=== PATIENT | male | born 2000 ===

== ENCOUNTER 2024-02-16 08:47 | Outpatient (REF) | payer MEDICAID, OTHER, SELFPAY ==
[2024-02-16 11:24] LABS: Anion Gap 12 (12-20); Blood Urea Nitrogen 13 mg/dL (9-16); Calcium 9.6 mg/dL (8.4-10.2); Carbon Dioxide 29 mmol/L (22-29); Chloride 104 mmol/L (96-108); Cholesterol 169 mg/dL (<200); Estimated Glomerular Filt Rate > 60; Glucose Random 92 mg/dL (60-115); HDL Cholesterol 40 mg/dL (>40); LDL Cholesterol Calculated 108 mg/dL (<100); Potassium 3.9 mmol/L (3.3-5.1); Sodium 141 mmol/L (135-145); Triglycerides 108 mg/dL (<150)
== END 2024-02-16 08:48 | disposition home or self-care (01) ==
LOC: HO.HHCL 08:47
PROVIDERS: Visit Provider Family Medicine
DX: I10 Essential (primary) hypertension (principal)
CPT/HCPCS: 36415; 80048; 80061

== ENCOUNTER 2024-08-08 09:31 | Outpatient (REF) | payer MEDICAID, SELFPAY ==
[2024-08-08 11:14] LABS: MANUAL DIFF FLAG NO
[2024-08-08 11:31] LABS: Basophils Absolute Auto 0.1 X10*3/uL (0.0-0.2); Basophils Percent Auto 0.6 % (0-2); Eosinophils Absolute Auto 0.1 X10*3/uL (0.0-0.4); Eosinophils Percent Auto 0.8 % (0-4); Hematocrit 44.2 % (42.0-52.0); Hemoglobin 15.3 g/dl (14.0-18.0); Imm Gran Abs Auto 0.03 X10*3/uL (0.00-0.03); Imm Gran Pct Auto 0.3 % (0.0-0.4); Lymphocytes Absolute Auto 2.4 X10*3/uL (1.2-4.9); Lymphocytes Percent Auto 24.6 % (20-40); Mean Corpuscular HGB Conc 34.6 g/dl (31.0-36.0); Mean Corpuscular Volume 92.5 fL (80.0-98.0); Mean Platelet Volume 10.6 fL (9.4-12.4); Monocytes Absolute Auto 0.9 X10*3/uL (0.1-1.2); Monocytes Percent Auto 9.6 % (2-11); Neutrophils Absolute Auto 6.1 x10*3/uL (2.0-8.3); Neutrophils Percent Auto 64.1 % (45-73); Platelet Count 251 X10*3/uL (160-400); Red Blood Count 4.78 X10*6/uL (4.60-5.80); White Blood Count 9.6 X10*3/uL (4.8-10.8)
[2024-08-08 11:48] LABS: Alanine Aminotransferase 22 U/L (0-40); Albumin Level 4.4 g/dL (3.5-5.0); Alkaline Phosphatase 110 U/L (39-117); Anion Gap 12 (12-20); Aspartate Amino Transferase 26 U/L (5-37); Bilirubin Total 0.6 mg/dL (0.0-1.0); Blood Urea Nitrogen 12 mg/dL (9-16); Calcium 9.2 mg/dL (8.4-10.2); Carbon Dioxide 24 mmol/L (22-29); Chloride 109 mmol/L (96-108); Estimated Glomerular Filt Rate > 60; Glucose Random 94 mg/dL (60-115); Sodium 141 mmol/L (135-145); Total Protein 7.5 g/dL (6.5-8.0)
[2024-08-08 12:05] LABS: HBsAGNum1 0.35 S/CO (0.00-0.99); HIV AB/AG Nonreactive (Nonreactive); HIV Num 1 0.17 S/CO (0.00-0.99); Hepatitis B Surface Antigen Negative (Negative); ~HepC Num1 0.28 S/CO (0.00-0.79); ~Hepatitis B Surface Antibody REACTIVE (Nonreactive); ~Hepatitis C Antibody Nonreactive (Nonreactive)
[2024-08-08 14:19] LABS: CT PCR NOT DETECTED (Not Detect.); NG PCR NOT DETECTED (Not Detect.)
[2024-08-09 08:54] LABS: Hepatitis A Antibody IgG Nonreactive (Nonreactive); ~Hepatitis A Antibody IgG 0.25 S/CO (0.00-0.99)
[2024-08-09 10:13] LABS: RPR Rapid Plasma Reagin NON-REACTIVE (NON-REACTIVE)
== END 2024-08-08 09:32 | disposition home or self-care (01) ==
LOC: HO.HHCL 09:31
PROVIDERS: Visit Provider Internal Medicine Geriatric Medicine
DX: I10 Essential (primary) hypertension (principal); Z11.3 Encounter for screening for infections with a predominantly sexual mode of transmission
CPT/HCPCS: 80053; 85025; 86592; 86706; 86708; 86803; 87340; 87389; 87491; 87591

== ENCOUNTER 2024-09-01 12:13 | Outpatient (REF) | payer MEDICAID, SELFPAY ==
[2024-09-01 13:45] LABS: Anion Gap 11 (12-20); Blood Urea Nitrogen 11 mg/dL (9-16); Calcium 9.2 mg/dL (8.4-10.2); Carbon Dioxide 27 mmol/L (22-29); Chloride 106 mmol/L (96-108); Estimated Glomerular Filt Rate > 60; Glucose Random 97 mg/dL (60-115); Potassium 3.6 mmol/L (3.3-5.1); Sodium 140 mmol/L (135-145)
== END 2024-09-01 12:14 | disposition home or self-care (01) ==
LOC: HO.HHCL 12:13
PROVIDERS: Visit Provider Internal Medicine Geriatric Medicine
DX: I10 Essential (primary) hypertension (principal)
CPT/HCPCS: 36415; 80048

== ENCOUNTER 2024-09-07 10:34 | Outpatient (REF) | payer MEDICAID, SELFPAY ==
[2024-09-07 12:13] LABS: Anion Gap 12 (12-20); Blood Urea Nitrogen 12 mg/dL (9-16); Calcium 9.2 mg/dL (8.4-10.2); Carbon Dioxide 27 mmol/L (22-29); Chloride 104 mmol/L (96-108); Estimated Glomerular Filt Rate > 60; Glucose Random 96 mg/dL (60-115); Potassium 3.9 mmol/L (3.3-5.1); Sodium 139 mmol/L (135-145)
--- OUTSIDE RECORDS SUMMARY | 2024-09-07 12:42 | XMS_ITS | Clinical Summary ---
Author Organization [employer] Address [address] [facility] [place] [address] Care Team Providers Care Jitney Driver Name Role Phone Name, Noel NICHOLAS Primary Care Provider [phone] Allergies No known active allergies Medications * This document contains information received from the source organization and may not represent a complete record from that organization. amLODIPine (Norvasc) 5 MG tablet Take 1 tablet (5 mg) by mouth Once per day. 30 tablet 11 5 08/08/19 26 Active Blood Pressure kitIndications:Be nign essential hypertension,Rout ine screening for STI (sexually transmitted infection) Use once a day 1 kit 5 Active hydroCHLOROthiazi de (HYDRODiuril) 25 MG tabletIndications :Benign essential hypertension Take 1 tablet (25 mg) by mouth Once per day. 30 tablet 11 5 09/02/19 26 Active hydroCHLOROthiazi de 12.5 MG tabletIndications :Benign essential hypertension Take 1 tablet (12.5 mg) by mouth Once per day. 30 tablet 11 5 09/02/19 25 Discontinu ed(Dose adjustment ) Active Problems Problem Noted Date Diagnosed Date Anxiety 08/21/2024 Benign essential hypertension 08/07/2024 Encounters * This document contains information received from the source organization and may not represent a complete record from that organization. Date Type Department Care Team Description 09/01/2024 11:00 AM EDT Telemedicine [facility] [address] [place] [address] Alisha Cope, MARVIN Benign essential hypertension 09/01/2024 Telephone [facility] [address] [place] [address] Name, MD Noel Error (VOID this visit) 09/01/2024 Travel 08/24/2024 11:15 AM EDT Telemedicine [facility] [place] [address] Noel Ledezma MD Benign essential hypertension (Primary Dx) 08/24/2024 Travel 08/21/2024 Telephone [facility] [place] [address] Noel Ledezma MD 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 ) 08/15/2024 Telephone [facility] [address] [place] [address] Leanna Salmeron RN 08/14/2024 1:30 PM EDT Telemedicine [facility] [place] [address] Leanna Salmeron RN Benign essential hypertension [I10] 08/14/2024 Travel 08/07/2024 2:00 PM EDT Office Visit [facility] [place] [address] Noel Ledezma MD Benign essential hypertension (Primary Dx); Routine screening for STI (sexually transmitted infection) 08/07/2024 Travel 08/04/2024 Population Health Risk Score [facility] () Department [address] [place] [phone] Provider, Population Health Generic 07/31/2024 Patient Outreach [facility] [address] [place] [address] Noel Ledezma MD Pre-visit Planning (SDOH negative, Tobacco screening negative. ) from Last 3 Months Immunizations Name Administration Dates Next Due Tdap 08/07/2024 Family History Medical History Relation Name Comments Hypertension Father Hypertension Mother Relation Name Status Comments Father Mother Social History Tobacco Use Types Packs/Day Years Used Date Smoking Tobacco: Never Smokeless Tobacco: Never Tobacco Cessation:Counseling Given: Not Answered Alcohol Use Standard Drinks/Week Comments Yes 0 (1 standard drink = 0.6 oz pur e alcohol) socially Depression Answer Date Recorded Patient Health Questionnaire-9 Score 4 08/07/2024 Patient Health Questionnaire-9 Score 4 08/07/2024 Last PHQ-9: Questionnaire Data Not on file 0 08/07/2024 Housing Stability Answer Date Recorded What is your housing situation today? I have vicki sing 07/31/[address] you li ve. Do you have problems with any of the following? None of the above 07/31/2024 Food Insecurity Answer Date Recorded Within the past 12 months, y ou worried that your food would run out before you got money to buy more: Never True 07/31/2024 Within the past 12 months,th e food you bought just didn't last and you didn't have enough money to get more: Never True 02/2025 Transportation Answer Date Recorded In the past 12 months, has l ack of transportation kept you from medical appts, meetings, work or from getting things needed for daily living? No 07/31/2024 Utilities Answer Date Recorded In the past 12 months, has t he electric, gas, oil or water company threatened to shut off services in your home? No 07/31/2024 Depression Answer Date Recorded Patient Health Questionnaire-2 Score 1 08/07/2024 Internet Access Answer Date Recorded Internet Access Q1 Yes 07/31/2024 Internet Access Q2 Not on file 07/31/2024 Sex and Gender Information Value Date Recorded Sex Assigned at Male 02/21/2024 1:25 PM EDT Legal Sex Male 4:14 PM EDT Gender Identity Male 02/21/2024 1:25 PM EDT Sexual Orientation Straight 02/21/2024 1: 25 PM EDT Last Filed Vital Signs Vital Sign Reading Time Taken Comments Blood Pressure 144/92 08/07/2024 2:10 PM EDT Pulse 89 08/07/2024 2:10 PM EDT Temperature 36.4 ??C (97.5 ??F) 08/07/2024 2:10 PM ED T Respiratory Rate 21 08/07/2024 2:10 PM EDT Oxygen Saturation 98% 08/07/2024 2:10 PM EDT Inhaled Oxygen Concentration - - Weight 88.6 kg (195 lb 6.4 oz) 08/07/2024 2:10 P M EDT Height 180.3 cm (5' 11 ) 08/07/2024 2:10 PM EDT Body Mass Index 27.25 08/07/2024 2:10 PM EDT Plan of Treatment Upcoming Encounters Date Type Department Care Team (Late st Contact Info) Description 09/08/2024 11:30 AM EDT Telemedicine [facility] [address] [place] [phone] 11/17/2024 11:30 AM EDT Office Visit [facility] [address] [place] [phone] Name, [place] [address] Health Maintenance Due Date Last Done Comments Alcohol/Substance Use Screening 2010 Family Planning (PISQ) 2013 HPV Vaccines (1 - Male 3-dos e series) 2013 Hepatitis A Vaccines (1 of 2 - Risk 2-dose series) 2017 Hepatitis B Vaccines (1 of 3 - 19+ 3-dose series) 2017 COVID-19 Vaccine (1 - 2023-2 5 season) 2024 Influenza Vaccine (#1) 2024 Depression Screening 08/07/2025 08/07/2024, 08/07/2024 SDOH Screening 08/07/2025 08/07/2024 Tobacco Screening 08/07/2025 08/07/2024 Lipid Panel 02/15/2029 02/16/2024 DTaP/Tdap/Td Vaccines (2 - T d or Tdap) 08/07/2034 08/07/2024 Zoster Vaccines (1 of 2) 2048 RSV Patients and Patients Aged 60 years or older (1 - 1-dose 75+ series) 2073 HIV Screening Completed 08/08/2024 Hepatitis C Screening Completed 08/08/2024 HIB Vaccines Aged Out No longer eligi ble based on patient's age to complete this topic IPV Vaccines Aged Out No longer eligi ble based on patient's age to complete this topic Meningococcal Vaccine Aged Out No kathryn sara eligible based on patient's age to complete this topic Pneumococcal Vaccine: Pediatrics (0 to 5 Years) and At-Risk Patients (6 to 49) Years) Aged Out No longer eligible b ased on patient's age to complete this topic RSV under 20 months Aged Out No longe r eligible based on patient's age to complete this topic Rotavirus Vaccines Aged Out No longer eligible based on patient's age to complete this topic Procedures Procedure Name Priority Date/Time Associated Diagnosis Comments BASIC METABOLIC PANEL Routine 09/07/2024 10:37 AM EDT Benign essential hypertension BASIC METABOLIC PANEL Routine 09/01/2024 12:15 PM EDT Benign essential hypertension HEPATITIS A ANTIBODY, TOTAL Routine 08/08/2024 9:33 AM EDT Benign essential hypertension Routine screening for STI (sexually transmitted infection) HEPATITIS B SURFACE ANTIBODY, QUALITATIVE Routine 08/08/2024 9:33 AM EDT Benign essential hypertension Routine screening for STI (sexually transmitted infection) HEPATITIS B SURFACE ANTIGEN, EIA Routine 08/08/2024 9:33 AM EDT Benign essential hypertension Routine screening for STI (sexually transmitted infection) HEPATITIS C AB W/REFL TO HCV RNA, QN, PCR Routine 08/08/2024 9:33 AM EDT Benign essential hypertension Routine screening for STI (sexually transmitted infection) RPR (MONITOR) W/REFL TITER Routine 08/08/2024 9:33 AM EDT Benign essential hypertension Routine screening for STI (sexually transmitted infection) HIV 1/2 ANTIGEN/ANTIBODY, FOURTH GENERATION W/RFL Routine 08/08/2024 9:33 AM EDT Benign essential hypertension Routine screening for STI (sexually transmitted infection) COMPREHENSIVE METABOLIC PANEL Routine 08/08/2024 9:33 AM EDT Benign essential hypertension Routine screening for STI (sexually transmitted infection) CBC WITH AUTO DIFFERENTIAL Routine 08/08/2024 9:33 AM EDT Benign essential hypertension Routine screening for STI (sexually transmitted infection) CHLAMYDIA/N. GONORRHOEAE RNA, TMA, UROGENITAL Routine 08/08/2024 9:33 AM EDT Benign essential hypertension Routine screening for STI (sexually transmitted infection) LIPID PANEL, STANDARD Routine 02/16/2024 8:52 AM EDT Benign essential hypertension from Last 3 Months or Most Recently Relevant to Health Maintenance Results * Basic Metabolic Panel (09/07/2024 10:37 AM EDT) Only the most recent of2 resultswithin the time period is included. Pathologist [facility] Sodium 139 135 - 145 mmol/L [facility] Potassium 3.9 3.3 - 5.1 mmol/L [facility] Chloride 104 96 - 108 mmol/L [facility] Carbon Dioxide 27 22 - 29 mmol/L [facility] Anion Gap 12 12 - 20 [facility] Urea Nitrogen (BUN) 12 9 - 16 mg/dL [facility] Creatinine, Serum 1.02 0.5 - 1.4 mg/dL [facility] Estimated Glomerular Filt Rate >60 [facility] Comment:Chronic Kidney Disea se: Estimated GFR < 60 mL/min/[id number] Kidney Disease: Estimated GFR < 15 mL/min/1.73m2 Glucose 96 60 - 115 mg/dL [facility] Calcium 9.2 8.4 - 10.2 mg/dL [facility] Blood Venous blood specimen / Unknown 09/07/2024 10:37 AM EDT 09/07/2024 11:17 AM EDT us Noel Ledezma MD LAB BLOOD ORDERABLES Final Resul t [facility] [address] [place] [address] [phone] * CBC auto differential (08/08/2024 9:33 AM EDT) White Blood Count 9.6 4.8 - 10.8 X10*3/uL [facility] Red Blood Count 4.78 4.60 - 5.80 X10*6/uL [facility] Hemoglobin 15.3 14.0 - 18.0 g/dl [facility] Hematocrit 44.2 42.0 - 52.0 % [facility] Mean Corpuscular Volume 92.5 80.0 - 98.0 fL [facility] Mean Corpuscular Hemoglobin 32.0 27.0 - 33.0 pg [facility] Mean Corpuscular HGB Conc 34.6 31.0 - 36.0 g/dl [facility] Red Cell Distribution Width 12.0 11.0 - 16.0 % [facility] Platelet Count 251 160 - 400 X10*3/uL [facility] Mean Platelet Volume 10.6 9.4 - 12.4 fL [facility] Neutrophils Percent Auto 64.1 45 - 73 % [facility] Imm Gran Pct Auto 0.3 0.0 - 0.4 % [facility] Lymphocytes Percent Auto 24.6 20 - 40 % [facility] Monocytes Percent Auto 9.6 2 - 11 % [facility] Eosinophils Percent Auto 0.8 0 - 4 % [facility] Basophils Percent Auto 0.6 0 - 2 % [facility] NRBC Pct Auto 0.0 0.0 - 0.2 /100WBC [facility] Neutrophils Absolute Auto 6.1 2.0 - 8.3 x10*3/uL [facility] Imm Gran Abs Auto 0.03 0.00 - 0.03 X10*3/uL [facility] Lymphocytes Absolute Auto 2.4 1.2 - 4.9 X10*3/uL [facility] Monocytes Absolute Auto 0.9 0.1 - 1.2 X10*3/uL [facility] Eosinophils Absolute Auto 0.1 0.0 - 0.4 X10*3/uL [facility] Basophils Absolute Auto 0.1 0.0 - 0.2 X10*3/uL [facility] NRBC Abs Auto 0.000 0.0 - 0.012 X10*3/uL [facility] Blood Venous blood specimen / Unknown 08/08/2024 9:33 AM EDT 08/08/2024 11:09 AM EDT us Noel Name LAB BLOOD ORDERABLES Final Resul t [facility] [address] [place] [phone] * Hepatitis C Antibody with Reflex to HCV, RNA, Quantitative, Real-Time PCR (08/08/2024 9:33 AM EDT) Pathologist [facility] Hepatitis C Antibody Nonreactive Nonreactive [facility] Comment:Antibodies to HCV no t detected; does not exclude early acuteHCV infection. Blood Venous blood specimen / Unknown 08/08/2024 9:33 AM EDT 08/08/2024 11:09 AM EDT us Noel Ledezma MD LAB BLOOD ORDERABLES Final Resul t Performing Organization Address [facility]/ZIP Co de Phone Number [facility] [address] [place] [phone] * Hepatitis A Antibody, Total (08/08/2024 9:33 AM EDT) [facility] Hepatitis A Antibody IgG Nonreactive Nonreactive [facility] Blood Venous blood specimen / Unknown 08/08/2024 9:33 AM EDT 08/08/2024 11:09 AM EDT us Noel Ledezma MD LAB BLOOD ORDERABLES Final Resul t Performing Organization Address [facility] Co de Phone Number [facility] [address] [place] [phone] * Chlamydia/N. Gonorrhoeae RNA, TMA, Urogenitial (08/08/2024 9:33 AM EDT) [facility] CT PCR NOT DETECTED Not Detect. [facility] Comment:A not detected test result does not exclude the possibilityof infection because test results can be affected byimproper specimen collection, concurrent antibiotic therapy,or the number of organisms in the specimen which may bebelow the sensitivity of the test. As with many diagnostictests, results from the Xpert CT/NG assay should beinterpreted in conjunction with other laboratory andclinical data available to the clinician.Xpert CT/NG performance has not been evaluated in patientsless than 14 years of age. The assay should not be used forthe evaluationof suspected sexual abuse or for other medico-legalindications. Additional testing is recommended in anycircumstance when false positive or false negative resultscould lead to adverse medical, social or psychologicalconsequences. NG PCR NOT DETECTED Not Detect. [facility] Comment:A not detected test result does not exclude the possibilityof infection because test results can be affected byimproper specimen collection, concurrent antibiotic therapy,or the number of organisms in the specimen which may bebelow the sensitivity of the test. As with many diagnostictests, results from the Xpert CT/NG assay should beinterpreted in conjunction with other laboratory andclinical data available to the clinician.Xpert CT/NG performance has not been evaluated in patientsless than 14 years of age. The assay should not be used forthe evaluationof suspected sexual abuse or for other medico-legalindications. Additional testing is recommended in anycircumstance when false positive or false negative resultscould lead to adverse medical, social or psychologicalconsequences. Urine (Urine, Random) 08/08/2024 9:33 AM EDT 08/08/2024 11:14 AM EDT Narrative [facility] - 08/08/2024 2:19 PM EDT Urine us Noel Ledezma MD LAB MICROBIOLOGY - GENERAL ORDER GIFTY Final Result Performing Organization Address [facility]/ZIP Co de Phone Number [facility] [address] [place] [phone] * Hepatitis B surface antigen, EIA (08/08/2024 9:33 AM EDT) Hepatitis B Surface Ag Negative Negative [facility] Blood Venous blood specimen / Unknown 08/08/2024 9:33 AM EDT 08/08/2024 11:09 AM EDT us Noel Ledezma MD LAB BLOOD ORDERABLES Final Resul t Performing Organization Address [facility]/ZIP Co de Phone Number [facility] [address] [place] [phone] * RPR (Monitor) with Reflex to??Titer (08/08/2024 9:33 AM EDT) RPR (Monitor) w/Refl Titer NON-REACTI VE NON-REACT RAJAT [facility] Comment:THIS TEST WAS PERFOR MED AT:[employer] [place] [id number] SENA MD Rapid Plasma Reagin Ab Titer TNP [facility] Blood Venous blood specimen / Unknown 08/08/2024 9:33 AM EDT 08/08/2024 11:09 AM EDT us Noel Ledezma MD LAB BLOOD ORDERABLES Final Resul t [facility] [address] [place] [phone] * HIV-1/2 Antigen and Antibodies, Fourth Generation, with Reflexes (08/08/2024 9:33 AM EDT) HIV AB/AG Nonreactive Nonreactive [facility] Comment:HIV-1 p24 Ag and/or HIV-1/HIV-2 Ab not detected.A test result that is nonreactive does not exclude thepossibility of exposure to or infection with HIV-1 and/orHIV-2. Nonreactive results in this assay for individualswith prior exposure to HIV-1 and/or HIV-2 may be due toantigen and antibody levels that are below the limit ofdetection of this assay.The [employer] HIV Ag/Ab Combo assay result andsupplemental assay results should be interpreted inconjunction with the patient's clinical presentation,history and other laboratory results. If the results areinconsistent with clinical evidence, additional testing issuggested to confirm the result. Blood Venous blood specimen / Unknown 08/08/2024 9:33 AM EDT 08/08/2024 11:09 AM EDT us Noel Ledezma MD LAB BLOOD ORDERABLES Final Resul t Performing Organization Address [facility]/ZIP Co de Phone Number [facility] [address] [place] [phone] * Hepatitis B Surface Antibody, Qualitative (08/08/2024 9:33 AM EDT) Pathologist [facility] ~Hepatitis B Surface Antibody REACTIVE Nonreactive [facility] Comment:REACTIVE: > 11.99 mI U/mL Blood Venous blood specimen / Unknown 08/08/2024 9:33 AM EDT 08/08/2024 11:09 AM EDT us Noel Ledezma MD LAB BLOOD ORDERABLES Final Resul t Performing Organization Address [facility] Co de Phone Number [facility] [address] [place] [phone] * (ABNORMAL) Comprehensive Metabolic Panel (08/08/2024 9:33 AM EDT) [facility] Sodium 141 135 - 145 mmol/L [facility] Potassium 4.0 3.3 - 5.1 mmol/L [facility] Chloride 109(H) 96 - 108 mmol/L [facility] Carbon Dioxide 24 22 - 29 mmol/L [facility] Anion Gap 12 12 - 20 [facility] Urea Nitrogen (BUN) 12 9 - 16 mg/dL [facility] Creatinine, Serum 1.00 0.5 - 1.4 mg/dL [facility] Estimated Glomerular Filt Rate >60 [facility] Comment:Chronic Kidney Disea se: Estimated GFR < 60 mL/min/[id number] Kidney Disease: Estimated GFR < 15 mL/min/1.73m2 Glucose 94 60 - 115 mg/dL [facility] Calcium 9.2 8.4 - 10.2 mg/dL [facility] Bilirubin, Total 0.6 0.0 - 1.0 mg/dL [facility] Aspartate Amino Transferase 26 5 - 37 U/L [facility] Alanine Aminotransferase 22 0 - 40 U/L [facility] Total Protein 7.5 6.5 - 8.0 g/dL [facility] Albumin Level 4.4 3.5 - 5.0 g/dL [facility] Alkaline Phosphatase 110 39 - 117 U/L [facility] Blood Venous blood specimen / Unknown 08/08/2024 9:33 AM EDT 08/08/2024 11:09 AM EDT Noel Ledezma MD LAB BLOOD ORDERABLES Final Resul t Performing Organization Address [facility] Co de Phone Number [facility] [address] [place] [phone] * (ABNORMAL) Lipid Panel, Standard (02/16/2024 8:52 AM EDT) Triglycerides 108 <150 mg/dL [facility] Comment:Desirable Triglyceri de: less than 150 mg/dLBorderline High Triglyceride 150-199 mg/dLHigh Triglyceride: 200-499 mg/dLVery High Triglyceride: greater than or equal to 5OO mg/dL Cholesterol 169 <200 mg/dL [facility] Comment:Desirable Cholestero l: less than 200 mg/dLBorderline High Cholesterol: 200-239 mg/dLHigh Cholesterol: greater than 239 mg/dL LDL Cholesterol Calculated 108(H) <100 mg/dL [facility] Comment:Desirable LDL: less than 100 mg/dLNear Optimal/Above Optimal LDL: 110- 129 mg/dLBorderline High LDL: 130-159 mg/dLHigh LDL: 160-189 mg/dLVery High LDL: greater than or equal to 190 mg/dL HDL Cholesterol 40(L) >40 mg/dL [facility] Comment:Desirable HDL: great er than 40 mg/dL Note: This HDL assay may give artificially low results in patients with liver disease. Blood Venous blood specimen / Unknown 02/16/2024 8:52 AM EDT 02/16/2024 11:09 AM EDT Nghia Lopes MD LAB BLOOD ORDERABLES Final Resul t [facility] [address] [place] [phone] from Last 3 Months or Most Recently Relevant to Health Maintenance [place] [address] [place] [address] C3 HSN FULL HSN FULL [facility] C3 Care Teams Jitney Driver Relationship Specialty Start Date End Date Name, MD Noel [address] [place] [phone] PCP - General Internal Medicine 08/07/24
== END 2024-09-07 10:35 | disposition home or self-care (01) ==
LOC: HO.HHCL 10:34
PROVIDERS: Visit Provider Internal Medicine Geriatric Medicine
DX: I10 Essential (primary) hypertension (principal)
CPT/HCPCS: 36415; 80048

== ENCOUNTER 2024-11-23 11:38 | Outpatient (REF) | payer MEDICAID, SELFPAY ==
--- OUTSIDE RECORDS SUMMARY | 2024-11-23 12:21 | XMS_ITS | Clinical Summary ---
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 Blood Pressure kitIndications:Be nign essential hypertension,Rout ine screening for STI (sexually transmitted infection) Use once a day 1 kit 5 Active losartan-hydroCHL OROthiazide (Hyzaar) 50-12.5 MG tabletIndications :Benign essential hypertension Take 1 tablet by mouth Once per day. 30 tablet 11 5 11/18/19 26 Active hydroCHLOROthiazi de (HYDRODiuril) 25 MG tabletIndications :Benign essential hypertension Take 1 tablet (25 mg) by mouth Once per day. 30 tablet 11 5 11/18/19 25 Discontinu ed(Therapy completed) amLODIPine (Norvasc) 10 MG tablet Take 1 tablet (10 mg) by mouth Once per day. 30 tablet 5 11/18/19 25 Discontinu ed(Ineffec tive) Active Problems Problem Noted Date Diagnosed Date Anxiety 08/21/2024 Benign essential hypertension 08/07/2024 Encounters Date Type Department Care Team Description 11/17/2024 11:30 AM EDT Office Visit [facility] [address] [place] [id number] Name, MD Noel Benign essential hypertension (Primary Dx); Astigmatism of both eyes, unspecified type 11/17/2024 Travel 11/16/2024 Travel 11/16/2024 Telephone [facility] [address] [place] [address] Aramis Callaway MA CHARTPREP 09/12/2024 Telephone [facility] [place] [address] Leanna Salmeron RN 09/08/2024 11:30 AM EDT Telemedicine [facility] [place] [address] Leanna Salmeron RN Benign essential hypertension [I10] 09/08/2024 Travel 09/01/2024 11:00 AM EDT Telemedicine [facility] [place] [address] Alisha Cope RN Benign essential hypertension 09/01/2024 Telephone [facility] [place] [address] Noel Ledezma MD Error (VOID this visit) 09/01/2024 Travel 08/24/2024 11:15 AM EDT Telemedicine [facility] [place] [address] Noel Ledezma MD Benign essential hypertension (Primary Dx) 08/24/2024 Travel from Last 3 Months Immunizations Immunization Administration Dates Next Due Tdap 08/07/2024 Family [...] your housing situation today? I have vicki resendez 07/31/[address] you li [...] Sign Reading Time Taken Comments Blood Pressure 138/78 11/17/2024 11:53 AM EDT Pulse 99 11/17/2024 11:53 AM EDT Temperature 37.1 C (98.8 F) 11/17/2024 11:53 AM EDT Respiratory Rate 18 11/17/2024 11:53 AM EDT Oxygen Saturation 98% 11/17/2024 11:53 AM EDT Inhaled Oxygen Concentration - - Weight 87.7 kg (193 lb 6.4 oz) 11/17/2024 11:53 AM EDT Height 180.3 cm (5' 11 ) 11/17/2024 11:53 AM EDT Body Mass Index 26.97 11/17/2024 11:53 AM EDT Plan of Treatment Upcoming Encounters Date Type Department Care Team (Late st Contact Info) Description 12/05/2024 11:30 AM EDT Telemedicine [facility] [address] [place], [place] [phone] Health Maintenance Due Date Last Done Comments Family Planning (PISQ) 2013 HPV Vaccines (1 - Male 3-dos e series) 2013 Hepatitis A Vaccines (1 of 2 - Risk 2-dose series) 2017 Hepatitis B Vaccines (1 of 3 - 19+ 3-dose series) 2017 COVID-19 Vaccine ( - 2023-2 5 season) 2024 Influenza Vaccine (#1) 2025 Depression Screening 08/07/2025 08/07/2024, 08/07/2024 SDOH Screening 08/07/2025 08/07/2024 Alcohol/Substance Use Screening 11/17/2025 11/17/2024 Disability Screening 11/17/2025 11/17/2024 Tobacco Screening 11/17/2025 11/17/2024 Lipid Panel 02/15/2029 02/16/2024 DTaP/Tdap/Td Vaccines (2 [...] patient's age to complete this topic Meningococcal B Vaccine Aged Out No l onger eligible based on patient's age to complete this topic Meningococcal Vaccine Aged Out No kathryn sara eligible based on patient's age to complete this topic Pneumococcal Vaccine: Pediatrics (0 to 5 Years) and At-Risk Patients (6 to 49) Years Aged Out No longer eligible b ased [...] 12:15 PM EDT Benign essential hypertension HEPATITIS C AB W/REFL TO HCV RNA, [...] of2 resultswithin the time period is included. Sodium 139 135 - 145 mmol/L [facility] Potassium 3.9 3.3 - 5.1 mmol/L [facility] Chloride 104 96 - 108 mmol/L [facility] Carbon Dioxide 27 22 - 29 mmol/L [facility] Anion Gap 12 12 - 20 [facility] Urea Nitrogen (BUN) 12 9 - 16 mg/dL [facility] Creatinine, Serum 1.02 0.5 - 1.4 mg/dL [facility] Estimated Glomerular Filt Rate >60 [facility] Comment:Chronic Kidney Disea se: Estimated GFR < 60 mL/min/1.56i6Inefrv Kidney Disease: Estimated GFR < 15 mL/min/1.73m2 Glucose 96 60 - 115 mg/dL [facility] Calcium 9.2 8.4 - 10.2 mg/dL [facility] Blood Venous blood specimen / Unknown 09/07/2024 10:37 AM EDT 09/07/2024 11:17 AM EDT us Noel Ledezma MD LAB BLOOD ORDERABLES Final Resul t [facility] [address] [place], [place] [phone] * Hepatitis C Antibody with Reflex to HCV, RNA, Quantitative, Real-Time PCR (08/08/2024 9:33 AM EDT) Hepatitis C Antibody Nonreactive Nonreactive [facility] Comment:Antibodies to HCV no t detected; does not exclude early acuteHCV infection. Blood Venous blood specimen / Unknown 08/08/2024 9:33 AM EDT 08/08/2024 11:09 AM EDT us Noel Ledezma MD LAB BLOOD ORDERABLES Final Resul t Performing Organization Address [facility] Co de Phone Number [facility] [address] [place] [address] [phone] * HIV-1/2 Antigen and Antibodies, Fourth Generation, with Reflexes (08/08/2024 9:33 AM EDT) HIV AB/AG Nonreactive Nonreactive [facility] Comment:HIV-1 p24 Ag and/or HIV-1/HIV-2 Ab not detected.A test result that is nonreactive does not exclude thepossibility of exposure to or infection with HIV-1 and/orHIV-2. Nonreactive results in this assay for individualswith prior exposure to HIV-1 and/or HIV-2 may be due toantigen and antibody levels that are below the limit ofdetection of this assay.The [employer] HIV Ag/Ab Combo assay result andsupplemental assay results should be interpreted inconjunction with the patient's clinical presentation,history and other laboratory results. If the results areinconsistent with clinical evidence, additional testing issuggested to confirm the result. Blood Venous blood specimen / Unknown 08/08/2024 9:33 AM EDT 08/08/2024 11:09 AM EDT us Noel Ledezma MD LAB BLOOD ORDERABLES Final Resul t Performing Organization Address City/[facility]/ZIP Co de Phone Number [facility] [address] [place] [address] [phone] * (ABNORMAL) Lipid Panel, Standard (02/16/2024 8:52 AM EDT) Triglycerides 108 <150 mg/dL [facility] Comment:Desirable Triglyceri de: less than 150 mg/dLBorderline High Triglyceride 150-199 mg/dLHigh Triglyceride: 200-499 mg/dLVery High Triglyceride: greater than or equal to 5OO mg/dL Cholesterol 169 <200 mg/dL [facility] Comment:Desirable Cholestero l: less than 200 mg/dLBorderline High Cholesterol: 200-239 mg/dLHigh Cholesterol: greater than 239 mg/dL LDL Cholesterol Calculated 108(H) <100 mg/dL [facility] Comment:Desirable LDL: less than 100 mg/dLNear Optimal/Above Optimal LDL: 110- 129 mg/dLBorderline High LDL: 130-159 mg/dLHigh LDL: 160-189 mg/dLVery High LDL: greater than or equal to 190 mg/dL HDL Cholesterol 40(L) >40 mg/dL [facility] Comment:Desirable HDL: great er than 40 mg/dL Note: This HDL assay may give artificially low results in patients with liver disease. Blood Venous blood specimen / Unknown 02/16/2024 8:52 AM EDT 02/16/2024 11:09 AM EDT us Nghia Lopes MD LAB BLOOD ORDERABLES Final Resul t [facility] [address] [place] [phone] from Last 3 Months or Most Recently Relevant to Health Maintenance Insurance [facility] C3 HSN FULL [facility] FULL [facility] C3 Care Teams Industrial Commercial Groundskeeper Relationship Specialty Start Date End Date Name, MD Noel [address] [place] [phone] PCP - General Internal Medicine 08/07/24
[2024-11-23 13:56] LABS: Anion Gap 12 (12-20); Blood Urea Nitrogen 16 mg/dL (9-16); Calcium 9.0 mg/dL (8.4-10.2); Carbon Dioxide 25 mmol/L (22-29); Chloride 106 mmol/L (96-108); Estimated Glomerular Filt Rate > 60; Potassium 3.7 mmol/L (3.3-5.1); Sodium 139 mmol/L (135-145)
== END 2024-11-23 11:39 | disposition home or self-care (01) ==
LOC: HO.HHCL 11:38
PROVIDERS: PCP Internal Medicine Geriatric Medicine; Visit Provider Internal Medicine Geriatric Medicine
DX: I10 Essential (primary) hypertension (principal)
CPT/HCPCS: 36415; 80048